=== PATIENT | female | born 1950 ===

== ENCOUNTER 2023-11-26 10:38 | Outpatient (AMB) | payer MEDICARE, OTHER, SELFPAY ==
--- NOTE | 2023-11-26 11:01 | MHC.PC.OV ---
Vital Signs 11/26/23 11:08 Height 5 ft 3.54 in Weight 146 lb BMI 25.4 BP 98/62 Blood Pressure Location Lt radial Position Sitting Respiration 12 Pulse 68 Pulse Source Pulse Oximeter Temp 98.2 F Temp Source Oral Pulse Oximetry (%) 97 Oxygen Delivery Method Room Air Intake Visit Reasons: Transfer from [facility] Intake Note: New patient visit Sprinkler Inspector Required: No Allergies gallium Allergy (Severe, Verified 11/26/23 11:04) Hives meperidine [From Demerol] Allergy (Severe, Verified 11/26/23 11:04) Headache negram Allergy (Severe, Uncoded 11/26/23 11:04) Headache Medication List - Last Reconciled 11/26/23 by Taryn Fiore MD epinephrine IM DAILY estradiol 0.01%(0.1mg/gram) vaginal fluocinolone acetonide oil 0.01% drps otic (ears) levalbuterol tartrate 45 mcg/actuation (Xopenex HFA) 2 puffs inhalation Q4-6H PRN levothyroxine 88 mcg PO DAILY meclizine 12.5 mg PO TID PRN Tobacco use date assessed: 11/26/23 Fall risk assessment: 2 + Falls in past year Last assessed Fall Risk: 11/26/23 Dental Screening Dental Screen Date: 11/26/23 Did you have a dental visit in the last 12 months?: Yes Did you have a dental problem in the last 6 months where you did not have access to dental care?: No Was dental information given to patient?: Patient has dentist HPI HPI Comments History of Present Illness Details The patient is a 73 year old female with a past medical history of hypothyroid, asthma, vertigo, hyperlipidemia presenting for follow up At the end of October flew to [place]. Midflight she developed mid/upper back pain more on the right. She denies onset of acute shortness of breath. She reports she did have some right leg discomfort on the flight and during the trip. [place] some [place] U[place] with bactrim which she completed. She has a history of nephrolithiasis and wonders if the discomfort could be a right sided kidney stone MSK: Low back pain, b/l hip pain L>R. Left sided sciatic, neck pain. Follows with PSS. Has done physical therapy and chiro CV: Denies chest pain. Mild increase in exertional dypsnea. In Jun 2021 had presyncope & palpitations. subsequent cardiac work up was benign. She now attributes this to covid vaccination. She is prone to vertigo and takes meclizine as needed. Hypothyroid: Stable on levothyroxine 88mcg daily On estradiol. Saw urology, gynecology. Was following with integrative medicine but became too pricey History of breast implants. Surgery in 2020 for explantation. Colonoscopy 10/2022 Declines further breast cancer screening [facility] Social History (Updated 11/26/23 @ 11:05 by Chelsie Solorzano [facility]) Housing: House Patient Tobacco Use Status: Never used Tobacco e-Cigarette/Vaping Use: Never Used Second Hand Smoke Exposure: No Use of substances other than those prescribed or required for medical reasons: No service: No Current occupational status: retired Cognitive needs: No Hearing needs: No Vision needs: Yes (glasses) Questionnaire PHQ-9 Over the last 2 weeks, how often have you been bothered by any of the following problems? 1. Little interest or pleasure in doing things: more than half the days 2. Feeling down, depressed, or hopeless: more than half the days 3. Trouble falling or staying asleep, or sleeping too much: more than half the days 4. Feeling tired or having little energy: several days 5. Poor appetite or overeating: several days 6. Feeling bad about yourself - or that you are a failure or have let yourself or your family down: not at all 7. Trouble concentrating on things, such as reading the newspaper or watching television: more than half the days 8. Moving or speaking so slowly that other people could have noticed. Or the opposite - being so fidgety or restless that you have been moving around a lot more than usual: several days 9. Thoughts that you would be better off or of hurting yourself in some way: not at all Total score: 11 Depression Screening Interpretation: Positive Depression Screening Follow-up: Community Mental Health Worker F/U Depression Screening Done: Yes Source: Developed by Drs. Tashi Guy, Vero Lutz, Marco A Luke and colleagues, with an educational ana m from [employer] ACT Questionnaire In the past 4 weeks, how much of the time did your asthma keep you from getting as much done at work, school or at home?: None of the time During the past 4 weeks, how often have you had shortness of breath?: 1-2 times a week (once in the past 4 weeks) During the past 4 weeks, how often did your asthma symptoms wake you up at night or earlier than usual in the morning?: Not at all During the past 4 weeks, how often have you had to use your rescue inhaler or nebulizer medication?: Not at all How would you rate your asthma control during the past 4 weeks?: Well controlled ACT Interpretation: Positive Score: 23 Review of Systems Const Details: see HPI Physical exam (Primary Care) Vital Signs: Last Vital Signs Temp 98.2 F 11/26/23 11:08 Pulse 68 11/26/23 11:08 Resp 12 11/26/23 11:08 BP 98/62 11/26/23 11:08 Pulse Ox 97 11/26/23 11:08 Oxygen Delivery Method Room Air 11/26/23 11:08 PHYSICAL EXAM: GENERAL: Alert and oriented x 3. NAD EYES: EOMI. Anicteric. HENT: Moist mucous membranes. LUNGS: Clear to auscultation bilaterally. CARDIOVASCULAR: Regular rate and rhythm. No murmur. No JVD. ABDOMEN: Soft, non-tender +bs EXTREMITIES: No edema. Non-tender. SKIN: No rashes or lesions. Warm. NEUROLOGIC: No focal neurological deficits. PSYCHIATRIC: Cooperative. 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 Qualified Code(s): E03.8 - Other specified hypothyroidism; E06.3 - Autoimmune thyroiditis (2) History of anaphylaxis: Code(s): Z87.892 - Personal history of anaphylaxis (3) Hyperlipidemia: Code(s): E78.5 - Hyperlipidemia, unspecified Qualifiers: Hyperlipidemia type: mixed hyperlipidemia Qualified Code(s): E78.2 - Mixed hyperlipidemia (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 Ddimer ordered Code(s): R10.9 - Unspecified abdominal pain (8) Shortness of breath: Comment: ddimer ordered Code(s): R06.02 - Shortness of breath (9) Thoracic back pain: Code(s): M54.6 - Pain in thoracic spine Qualifiers: Chronicity: unspecified Back pain laterality: right Qualified Code(s): M54.6 - Pain in thoracic spine (10) Nephrolithiasis: Code(s): N20.0 - Calculus of kidney Orders: Orders Basic Metabolic Panel Today N20.0 - Calculus of kidney D Dimer High Sensitivity Today N20.0 - Calculus of kidney US renal BI Today N20.0 - Calculus of kidney Coding Level of Care Code Est Pt Level 5 (48012) Diagnoses 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
[2023-11-26 11:08] VITALS: BP 98/62; PULSE 68; RESP 12; TEMP 36.8; O2SAT 97; BMI 25.4
== END 2023-11-26 12:59 | disposition home or self-care (01) ==
PROVIDERS: PCP Internal Medicine; Visit Provider Internal Medicine
DX: E03.8 Other specified hypothyroidism (principal); D80.3 Selective deficiency of immunoglobulin G [IgG] subclasses; E06.3 Autoimmune thyroiditis; Z87.892 Personal history of anaphylaxis; E78.2 Mixed hyperlipidemia; R73.03 Prediabetes; J45.20 Mild intermittent asthma, uncomplicated; R10.9 Unspecified abdominal pain; R06.02 Shortness of breath; M54.6 Pain in thoracic spine; N20.0 Calculus of kidney
CPT/HCPCS: 99215

== ENCOUNTER 2023-11-28 10:03 | Outpatient (REF) | payer MEDICARE, OTHER, SELFPAY ==
[2023-11-28 11:51] LABS: D Dimer High Sensitivity < 150 NG/ML
[2023-11-28 11:56] LABS: Anion Gap 9 (12-20); Blood Urea Nitrogen 15 mg/dL (9-16); Calcium 9.4 mg/dL (8.4-10.2); Carbon Dioxide 25 mmol/L (22-29); Chloride 110 mmol/L (96-108); Estimated Glomerular Filt Rate > 60; Glucose Random 76 mg/dL (60-115); Potassium 3.9 mmol/L (3.3-5.1); Sodium 140 mmol/L (135-145)
== END 2023-11-28 10:04 | disposition home or self-care (01) ==
LOC: HO.WFDLDS 10:03
PROVIDERS: Visit Provider Internal Medicine
DX: N20.0 Calculus of kidney (principal)
CPT/HCPCS: 36415; 80048; 85379

== ENCOUNTER 2024-01-09 11:04 | Outpatient (AMB) | payer MEDICARE, OTHER, SELFPAY ==
--- NOTE | 2024-01-09 11:10 | AM.OFFWIN_ITS ---
Intake Vital Signs 01/09/24 11:15 Height 5 ft 3.54 in Weight 143 lb 2 oz BMI 24.9 BP 102/62 Blood Pressure Location Lt brachial Position Sitting Respiration 12 Pulse 65 Pulse Source Palpation Pulse Oximetry (%) 97 Oxygen Delivery Method Room Air Intake Visit Reasons: ear blockage in both ears Intake Note: Bilateral ear impacted. Patient Tobacco Use Status: Never used Tobacco Allergies gallium Allergy (Severe, Verified 01/09/24 11:47) Hives meperidine [From Demerol] Allergy (Severe, Verified 01/09/24 11:47) Headache negram Allergy (Severe, Uncoded 01/09/24 11:15) Headache Do you need a note to return to daycare/school/sports/work: No HPI HPI Comments History of Present Illness Details 73-year-old female here today with compl aints bilat ears feeling blocked. Left worse than right. Reports that the symptoms started about 1 week ago and are worse over the last 3 days. Reports that this happens several times a year with need for lavage. [facility] Social History (Updated 11/26/23 @ 11:05 by Chelsie Solorzano [facility]) Housing: House Patient Tobacco Use Status: Never used Tobacco e-Cigarette/Vaping Use: Never Used Second Hand Smoke Exposure: No service: No Current occupational status: retired Cognitive needs: No Hearing needs: No Vision needs: Yes (glasses) Physical Exam Vital Signs: Last Vital Signs Pulse 65 01/09/24 11:15 Resp 12 01/09/24 11:15 BP 102/62 01/09/24 11:15 Pulse Ox 97 01/09/24 11:15 Oxygen Delivery Method Room Air 01/09/24 11:15 BMI result Body Mass Index 24.9 Office Procedures Cerumen Removal From which ear canal was the cerumen removed: bilateral Removal: irrigation Notes: patient tolerated procedure well, no complications and ear canal clear [id number] Irrigation/Lavage Assessment & Plan Assessment & Plan (1) Impacted cerumen of both ears: Code(s): H61.23 - Impacted cerumen, bilateral Plan: . Plan . Coding Level of Care Code Procedure Only Diagnoses Impacted cerumen of both ears H61.23 CPT Codes Office Procedure - CPT: 45718-Btq Irrigation/Lavage ([id number])
[2024-01-09 11:15] VITALS: BP 102/62; PULSE 65; RESP 12; O2SAT 97; BMI 24.9
== END 2024-01-09 12:02 | disposition home or self-care (01) ==
PROVIDERS: PCP Internal Medicine; Visit Provider Nurse Practitioner Family
DX: H61.23 Impacted cerumen, bilateral (principal)
CPT/HCPCS: 69209

== ENCOUNTER 2024-02-23 12:36 | Outpatient (REF) | payer MEDICARE, OTHER, SELFPAY ==
[2024-03-02 14:43] LABS: Creatinine Random Urine 13 mg/dL (16 - 326); N-Methylhistamine Random Urine 137 mcg/g Cr (30-200)
== END 2024-02-23 12:37 | disposition home or self-care (01) ==
LOC: HO.LAB 12:36
PROVIDERS: PCP Internal Medicine; Visit Provider Physician Assistant
DX: D80.4 Selective deficiency of immunoglobulin M [IgM] (principal); D80.3 Selective deficiency of immunoglobulin G [IgG] subclasses; Z86.19 Personal history of other infectious and parasitic diseases; L20.9 Atopic dermatitis, unspecified; T63.441A Toxic effect of venom of bees, accidental (unintentional), initial encounter
CPT/HCPCS: 36415; 82542; 82570; 83520; 84150

== ENCOUNTER 2024-09-03 11:18 | Outpatient (AMB) | payer MEDICARE, OTHER, SELFPAY ==
--- NOTE | 2024-09-03 11:24 | MHC.PC.OV ---
Vital Signs 09/03/24 11:29 Height 5 ft 3.54 in Weight 139 lb 6 oz BMI 24.3 BP 116/74 Blood Pressure Location Rt brachial Position Sitting Respiration 12 Pulse 70 Pulse Source Pulse Oximeter Pulse Oximetry (%) 99 Oxygen Delivery Method Room Air Intake Visit Reasons: pain and lump on her right breast Intake Note: Lump right breast Imcu Specialist Required: No Allergies gallium Allergy (Severe, Verified 09/03/24 11:25) Hives meperidine [From Demerol] Allergy (Severe, Verified 09/03/24 11:25) Headache negram Allergy (Severe, Uncoded 09/03/24 11:25) Headache Tobacco use date assessed: 09/03/24 Fall risk assessment: No Falls in past year Last assessed Fall Risk: 09/03/24 Dental Screening Dental Screen Date: 11/26/23 HPI HPI Comments History of Present Illness Details The patient is a 73 year old female with a past medical history of hypothyroid, asthma, vertigo, hyperlipidemia presenting for right breast lump For the past 4-6 weeks has had some pain and a palpable mass in the right breast about 1 inch above the right nipple. She is on estradiol and has been using a topical herbal cream that contains some estrogen. She has a history of breast implants with explantation in 2020. She has declined mammograms for the past few years. At the end of October flew to [place]. Midflight she developed mid/upper back pain more on the right. She denies onset of acute shortness of breath. She reports she did have some right leg discomfort on the flight and during the trip. She did not some [place]ness [place] for a UTI while on the [place] with bactrim which she completed. She has a history of nephrolithiasis and wonders if the discomfort could be a right sided kidney stone MSK: Low back pain, b/l hip pain L>R. Left sided sciatic, neck pain. Follows with PSS. Has done physical therapy and chiro CV: Denies chest pain. Mild increase in exertional dypsnea. In Jun 2021 had presyncope & palpitations. subsequent cardiac work up was benign. She now attributes this to covid vaccination. She is prone to vertigo and takes meclizine as needed. Hypothyroid: Stable on levothyroxine 88mcg daily On estradiol. Saw urology, gynecology. Was following with integrative medicine but became too pricey History of breast implants. Surgery in 2020 for explantation. Colonoscopy 10/2022 Declines further breast cancer screening ROS see HPI PHYSICAL EXAM: GENERAL: Alert and oriented x 3. NAD EYES: EOMI. Anicteric. HENT: Moist mucous membranes. No scleral icterus. No cervical lymphadenopathy. LUNGS: Clear to auscultation bilaterally. BREAST: Right breast normal to inspection, 2cm 12 oclock firm, somewhat mobile palpable mass CARDIOVASCULAR: Regular rate and rhythm. No murmur. No JVD. ABDOMEN: Soft, non-tender +bs EXTREMITIES: No edema. Non-tender. SKIN: No rashes or lesions. Warm. NEUROLOGIC: No focal neurological deficits. CN II-XII grossly intact PSYCHIATRIC: Cooperative. Appropriate mood and affect [facility] Social History (Updated 09/03/24 @ 11:33 by Chelsie Solorzano [facility]) Housing: House Alcohol intake: never Patient Tobacco Use Status: Never used Tobacco e-Cigarette/Vaping Use: Never Used Second Hand Smoke Exposure: No Use of substances other than those prescribed or required for medical reasons: No service: No Current occupational status: retired Cognitive needs: No Hearing needs: No Vision needs: Yes (glasses) Questionnaire PHQ-9 Over the last 2 weeks, how often have you been bothered by any of the following problems? 1. Little interest or pleasure in doing things: not at all 2. Feeling down, depressed, or hopeless: not at all 3. Trouble falling or staying asleep, or sleeping too much: several days 4. Feeling tired or having little energy: several days 5. Poor appetite or overeating: several days 6. Feeling bad about yourself - or that you are a failure or have let yourself or your family down: not at all 7. Trouble concentrating on things, such as reading the newspaper or watching television: not at all 8. Moving or speaking so slowly that other people could have noticed. Or the opposite - being so fidgety or restless that you have been moving around a lot more than usual: not at all 9. Thoughts that you would be better off or of hurting yourself in some way: not at all Total score: 3 Depression Screening Interpretation: Positive Depression Screening Done: Yes 87921 - PHQ-9 Billing: Yes Source: Developed by Drs. Tashi Guy, Marco A Loo and colleagues, with an educational ana m from [employer]. Thrive Questionnaire Date Thrive assessed: 09/03/24 I am a: Patient What is your living situation today?: I have a steady place to live Within the past 12 months, did the food you bought not last and you didn't have the money to get more?: I choose not to answer this question Within the past 12 months, did you worry whether your food would run out before you got money to buy more?: I choose not to answer this question Do you have trouble paying for medicines?: I choose not to answer this question Do you have trouble getting transportation to medical appointments?: I choose not to answer this question Do you have trouble paying your heating and electricity bill?: Yes Do you have trouble taking care of your child, family member or friend?: No Do you have trouble with day-to-day activities such as bathing, preparing meals, shopping, managing finances, etc.?: No Are you currently unemployed and looking for a job?: Yes Are you interested in more education?: No Please select the resources that you would like help with: Utilities Currently or been in a relationship where the following occur: No concerns reported THRIVE Score: 1 AUDIT C Alcohol Use Questionnaire (AUDIT-C) 1. How often do you have a drink containing alcohol?: Never Total Score: 0 FLORINA-7 AMB Questionnaire FLORINA-7 Date FLORINA - 7 assessed: 09/03/24 Feeling nervous, anxious, or on edge: 1 = Several days Not being able to stop or control worryin = Not at all Worrying too much about different things: 0 = Not at all Trouble relaxin = Not at all Being so restless that it is hard to sit still: 0 = Not at all Becoming easily annoyed or irritable: 1 = Several days Feeling afraid as if something awful might happen: 0 = Not at all Total FLORINA-7 score (0-4 normal; 5-9 mild; 10-14 moderate; 15-21 severe): 2 Source: Developed by Drs. Tashi Guy, Marco A Loo and colleagues, with an educational ana m from [employer]. FLORINA-7 Assessment Billing FLORINA-7 Assessment Tool: FLORINA-7 Assessment 30298 Physical exam (Primary Care) Vital Signs: Last Vital Signs Pulse 70 09/03/24 11:29 Resp 12 09/03/24 11:29 BP 116/74 09/03/24 11:29 Pulse Ox 99 09/03/24 11:29 Oxygen Delivery Method Room Air 09/03/24 11:29 BMI result Body Mass Index 24.3 Tobacco/Smoking Status: Tobacco use Status Tobacco use date assessed 09/03/24 09/03/24 11:33 Patient Tobacco Use Status Never used Tobacco 09/03/24 11:33 e-Cigarette/Vaping Use Never Used 09/03/24 11:33 PHQ-9: PHQ-9 Score PHQ-9: Total score 3 09/04/24 15:22 Depression Screening Interpretation: Positive Thrive Assessment: Date of Thrive Assessment Date Thrive assessed 09/03/24 09/03/24 11:33 Currently or been in a relationship where the following occur: No concerns reported Coding Level of Care Code Est Pt Level 4 (07826) Diagnoses Mass of right breast, unspecified quadrant N63.10 Breast mass location: unspecified quadrant Additional Codes FLORINA-7 Assessment Billing - FLORINA-7 Assessment Tool: FLORINA-7 Assessment 51592 ([id number]) PHQ-9 - 00934 - PHQ-9 Billing: Yes ([id number]) Assessment & Plan Assessment & Plan (1) Breast mass, right: Code(s): N63.10 - Unspecified lump in the right breast, unspecified quadrant Category: Medical Qualifiers: Breast mass location: unspecified quadrant Qualified Code(s): N63.10 - Unspecified lump in the right breast, unspecified quadrant Plan: Right breast mass Declines mammogram Ultrasound ordered Orders: Orders US breast RT complete 09/03/24 N63.10 - Unspecified lump in the right breast, unspecified quadrant
[2024-09-03 11:29] VITALS: BP 116/74; PULSE 70; RESP 12; O2SAT 99; BMI 24.3
--- OUTSIDE RECORDS SUMMARY | 2024-09-03 13:25 | XMS_ITS | Clinical Summary ---
Author Organization [employer] Address [address] [place] [address] Care Team Providers Care Panel Lay Up Worker Name Role Phone Unavailable Primary Care Provider Unavailabl e Allergies Active Allergy Reactions Criticality Noted Date Comments Ciprofloxacin Hives 01/18/2019 Epinephrine Palpitations High 06/25/2018 Medications fluocinolone (DermOtic) 0.01 % ear drops INSTILL 2 TO 3 DROPS PER EAR FOR 2 WEEKS NEEDED DIRECTED BY OFFICE 2 Active levalbuterol (Xopenex) 45 MCG/ACT inhaler TAKE 1 PUFF BY MOUTH EVERY 4 HOURS NEEDED FOR WHEEZE/ FOR SHORTNESS OF BREATH 2 Active levothyroxine (Synthroid, Levoxyl) 88 MCG tablet Take 88 mcg by mouth in the morning. 2 Active meclizine (Antivert) 12.5 MG tablet Take 2 tablets by mouth every 8 (eight) hours. Active mometasone (Elocon) 0.1 % ointment APPLY TO ECZEMA ON FACE AND EXTREMITIES TWICE DAILY X UP TO 2 WKS ON, 1 WK OFF. REPEAT NEEDED. 2 Active estradiol (Estrace) 0.1 MG/GM vaginal cream INSERT 1 GRAM PER VAGINA 3X PER WEEK 2 Active EPINEPHrine (Epipen) 0.3 MG/0.3ML injection syringe 0.3 MG INTRAMUSCULAR ONCE, 2 PACK 3 Active EPINEPHrine (EpiPen 2-Gary) 0.3 MG/0.3ML injection syringe Inject 0.3 mg into the shoulder, thigh, or buttocks. 3 Active hydrocortisone 2.5 % cream APPLY TO EYELID RASH TWICE A DAY NEEDED MAX 14 DAYS/MONTH 3 Active dehydroepiandr osterone (DHEA) 10 MG tablet Take by mouth. 2 Active Active Problems Problem Noted Date Diagnosed Date Dental caries 07/09/2023 Encounters Date Type Department Care Team Description 06/08/2024 8:30 AM EST Office Visit [facility] [address] [place] [id number] Juan Diego Rodriguez BDS Dental caries (Primary Dx) from Last 3 Months Social History Tobacco Use Types Packs/Day Years Used Date Smoking Tobacco: Never Smokeless Tobacco: Never Tobacco Cessation:Counseling Given: Not Answered Alcohol Use Standard Drinks/Week Comments Never 0 (1 standard drink = 0.6 oz pur e alcohol) Comments Unknown Sex and Gender Information Value Date Recorded Sex Assigned at Female 05/06/2022 10:34 AM EDT Legal Sex Female 10:34 AM EDT Gender Identity Female 05/06/2022 10:34 AM EDT Sexual Orientation Straight 05/06/2022 10 :34 AM EDT Last Filed Vital Signs Vital Sign Reading Time Taken Comments Blood Pressure 129/73 06/08/2024 8:43 AM EST Pulse 68 06/08/2024 8:43 AM EST Temperature - - Respiratory Rate - - Oxygen Saturation - - Inhaled Oxygen Concentration - - Weight - - Height - - Body Mass Index - - Plan of Treatment Health Maintenance Due Date Last Done Comments CT Colonography 1952 Colonoscopy 1952 Colorectal Cancer Screening 1952 Dental X-Ray: Full Mouth 1952 Depression Screening 1952 FIT DNA/Cologuard 1952 FIT 1952 FOBT 1952 SDOH Screening 1952 Sigmoidoscopy 1952 Alcohol/Substance Use Screening 1964 Hepatitis C Screening 1970 DTaP/Tdap/Td Vaccines (1 - Tdap) 10/17/1971 Pneumococcal Vaccine: 50+ Years (1 of 2 - PCV) 10/17/1971 Zoster Vaccines (1 of 2) 10/17/1971 Mammogram 1992 RSV Patients and Patients Aged 60 years or older (1 - Risk 60-74 years 1-dose series) 2012 COVID-19 Vaccine (2 - Pfizer risk series) 09/07/2021 08/17/2021 Dental Oral Exam 01/21/2023 07/23/2022 Dental Prophylaxis 01/29/2024 07/30/2023, 07/23/2022 Influenza Vaccine (#1) 2024 Dental X-Ray: Bitewings 05/26/2025 05/25/20, 07/09/2023, 12/04/2022, Additional history exists Tobacco Screening 06/08/2025 06/08/2024 HIB Vaccines Aged Out No longer eligi ble based on patient's age to complete this topic HPV Vaccines Aged Out No longer eligi ble based on patient's age to complete this topic Hepatitis A Vaccines Aged Out No long er eligible based on patient's age to complete this topic Hepatitis B Vaccines Aged Out No long er eligible based on patient's age to complete this topic IPV Vaccines Aged Out No longer eligi ble based on patient's age to complete this topic Meningococcal Vaccine Aged Out No jose e guero eligible based on patient's age to complete this topic RSV under 20 months Aged Out No longe r eligible based on patient's age to complete this topic Rotavirus Vaccines Aged Out No longer eligible based on patient's age to complete this topic Procedures Procedure Name Priority Date/Time Associated Diagnosis Comments LIMITED ORAL EVALUATION - PROBLEM FOCUSED Routine 06/08/2024 8:30 AM EST BITEWING - SINGLE RADIOGRAPHIC IMAGE Routine 05/25/2024 11:30 AM EST PROPHYLAXIS - ADULT Routine 07/30/2023 1 1:00 AM EST PERIODIC ORAL EVALUATION - ESTABLISHED PATIENT Routine 07/23/2022 2:00 PM EST from Last 3 Months or Most Recently Relevant to Health Maintenance Insurance DENTAL - [facility] - [facility]
--- OUTSIDE RECORDS SUMMARY | 2024-09-03 13:25 | XMS_ITS | Encounter Summary ---
Author Organization [employer] Address [address] [place] [address] Care Team Providers Care Fire Marshal Name Role Phone Unavailable Primary Care Provider Unavailabl e Encounter Details Date Type Department Care Team (Latest Contact Info) Description 05/08/2021 Abstract [facility] CONVERSIONS Dental, Provider, DDS Social History Tobacco Use Types Packs/Day Years Used Date Smoking Tobacco: Never Assessed Comments Unknown Sex and Gender Information Value Date Recorded Sex Assigned at Female 05/06/2022 10:34 AM EDT Legal Sex Female 10:34 AM EDT Gender Identity Female 05/06/2022 10:34 AM EDT Sexual Orientation Straight 05/06/2022 10 :34 AM EDT documented as of this encounter Plan of Treatment Not on file documented as of this encounter Visit Diagnoses Not on filedocumented in this encounter
--- OUTSIDE RECORDS SUMMARY | 2024-09-03 13:25 | XMS_ITS | Encounter Summary ---
Author Organization [employer] Address [address] [place] [address] Care Team Providers Care Upper Cutter Out Name Role Phone Unavailable Primary Care Provider Unavailabl e Encounter Details Date Type Department Care Team (Latest Contact Info) Description 09/04/2018 Abstract [facility] [place] CONVERSIONS Dental, Provider, DDS Social History Tobacco [...]
== END 2024-09-03 13:15 | disposition home or self-care (01) ==
PROVIDERS: PCP Internal Medicine; Visit Provider Internal Medicine
DX: N63.10 Unspecified lump in the right breast, unspecified quadrant (principal)